=== PATIENT | female | born 1945 | race Caucasian/White ===

== ENCOUNTER 2023-02-22 15:04 | Outpatient (REF) | payer MEDICARE, MEDICAID, SELFPAY ==
[2023-02-22 16:57] LABS: T4 Thyroxine 7.8 ug/dL (4.5-12.0); Thyroid Stimulating Hormone 1.68 uIU/mL (0.32-4.0)
[2023-02-22 17:17] LABS: Folate 10.1 ng/mL (> or = 4.0); Vitamin B12 608 pg/mL (200-900)
[2023-02-23 16:34] LABS: Homocysteine 11.8 umol/L (<10.4)
[2023-02-27 17:53] LABS: Methylmalonic Acid 196 nmol/L (87-318)
== END 2023-02-22 15:05 | disposition home or self-care (01) ==
LOC: HO.LAB 15:04
PROVIDERS: PCP Physician Assistant Medical; Visit Provider Psychiatry & Neurology Neurology
DX: G31.84 Mild cognitive impairment of uncertain or unknown etiology (principal)
CPT/HCPCS: 36415; 82607; 82746; 83090; 83921; 84436; 84443